=== PATIENT | female | born 1950 | race Caucasian/White ===

== ENCOUNTER → 2016-08-17 | Outpatient (CLI) | payer OTHER ==
--- NOTE | 2016-08-17 12:37 | CT ---
EXAMINATION TYPE: CT abdomen pelvis w con DATE OF EXAM: 08/17/2016 COMPARISON: NONE INDICATION: Swelling, pressure, distention umbilicus down DLP: 394.7 mGycm, Automated exposure control for dose reduction was used. CONTRAST: 100 mL of Omnipaque 300. Study performed with Oral Contrast TECHNIQUE: Axial images were obtained from above the diaphragm to the pubic rami in the axial plane a t 5 mm thick sections. Reconstructed images are reviewed on the computer in the coronal plane. FINDINGS: Limited CT sections are obtained the lung bases. The lung bases are clear. Bilateral breast prosthe ses are present. A inflated right breast prosthesis is not excluded at the edge of the [id number]. CT ABDOMEN: Liver: Normal. Some very minimal fluid may be adjacent to the liver and the diaphragm. Spleen: Normal. Some minimal ascites may be adjacent to the spleen. Pancreas: There is some minimal prominence of the pancreatic duct within the distal body measuring 3 mm. The should be less than 2 mm in normal circumstance. Consider ERCP for additional evaluation. Adrenal glands: The adrenal glands are normal. Gallbladder: Normal Kidneys: No masses are evident. No hydronephrosis is present. No cysts are present. Delayed images were obtained through the kidneys, which remain unremarkable. Aorta: Vascular calcification is within the aorta. Inferior vena cava: Normal. CT PELVIS: Loops of bowel within the abdomen and pelvis are normal. There are loops of bowel which are incom pletely distended or lack oral contrast limiting their evaluation. Appendix: Not identified Urinary bladder: Normal. Genitourinary structures: Uterus appears unremarkable There is a very large multiseptated low density structure within the anterior pelvis and lower abdome n suspicious for ovarian neoplasm. This is estimated to measure 17 cm transverse by 13 cm AP by 19 cm in craniocaudal dimension. Omental caking is not identified. Additional areas of ascites may be with in the right paracolic gutter. Significant free fluid within the pelvis is not evident. Osseous structures: No suspicious lytic or sclerotic lesions. IMPRESSIONS: 1. Large multiseptated cystic structure within the pelvis suspicious for ovarian carcinoma. 2. Minimal ascites adjacent to liver and spleen and right paracolic gutter. 3. Preliminary results were provided to the office.
== END | disposition home or self-care (01) ==
LOC: RADCTMAIN 10:24
PROVIDERS: ATTEND Internal Medicine
DX: R18.8 Other ascites (principal); N94.89 Other specified conditions associated with female genital organs and menstrual cycle
CPT/HCPCS: 74177; Q9967

== ENCOUNTER → 2017-10-19 | Outpatient (CLI) | payer MEDICARE ==
--- NOTE | 2017-10-19 12:49 | XR ---
EXAMINATION TYPE: XR ribs bilat w pa chest xray DATE OF EXAM: 10/19/2017 COMPARISON: NONE HISTORY: Pain TECHNIQUE: PA view the chest and 4 views of the ribs were obtained bilaterally FINDINGS: There is a small right pleural effusion with basilar consolidation. No pneumothorax. No int erstitial edema. There are rib deformities involving the lateral margin of the right fifth through ni nth ribs laterally and anterolaterally. Deformity involving the anterolateral left fifth rib suggest previous IMPRESSION: 1. Multiple right-sided rib fractures with small right pleural effusion and basilar consolidation. 2. Age-indeterminate deformity lateral margin left fifth rib.
== END | disposition home or self-care (01) ==
LOC: RADXRYALE 11:29
PROVIDERS: ATTEND Internal Medicine
DX: S22.41XD Multiple fractures of ribs, right side, subsequent encounter for fracture with routine healing (principal); J90 Pleural effusion, not elsewhere classified; J18.1 Lobar pneumonia, unspecified organism
CPT/HCPCS: 71111